=== PATIENT | male | born 1985 | race Caucasian/White ===

== ENCOUNTER 2018-08-21 16:42 | Emergency (ER) | payer SELFPAY ==
[~2018-08-21] VITALS: Ht 175.3 cm; Wt 77.1 kg
[2018-08-21] MEDS ORDERED: Bactrim Ds Tab1 EACH PO (17:05)
== END 2018-08-21 17:24 | disposition home or self-care (01) ==
LOC: ER 16:42
DX: L03.113 Cellulitis of right upper limb (principal); Z23 Encounter for immunization; F17.210 Nicotine dependence, cigarettes, uncomplicated
CPT/HCPCS: 90471; 90714; 99283-25